=== PATIENT | female | born 1950 | race Caucasian/White ===

== ENCOUNTER 2016-08-02 09:14 | Emergency (ER) | payer MEDICAID ==
[2015-06-25 14:42] VITALS: Ht 172.7 cm; Wt 68.0 kg
[~2016-08-02] VITALS: Ht 172.7 cm; Wt 68.0 kg
[~2016-08-02 09:14] MED LIST: ACET-73 GT; BACL10TA GT; DEXL30CA3 GT; MAGN400O4 GT
[2016-08-02 09:15] VITALS: BP 162/111; PULSE 94; RESP 18; TEMP 97.1; O2SAT 96
--- NOTE | 2016-08-02 09:15 | NUR ---
Pt report received from SURESH Marshall. Pt from [facility] for G-Tube replacement. Pt with [place]. NAD noted.
--- NOTE | 2016-08-02 09:15 | NUR ---
Arrived via [facility] ambulance for GT replacement. Prior GT was 22FR. Patient to ER bed 3 to gown for evaluation. Side rails up. Report given to Maykel PRINCE.
--- NOTE | 2016-08-02 09:30 | NUR ---
Dr. Serrano at bedside to assess pt.
[2016-08-02] MEDS ORDERED: GASTROGRAFIN 120 ML ONE (09:34)
--- NOTE | 2016-08-02 12:00 | NUR ---
Dr. Serrano at bedside to place G-Tube.
--- NOTE | 2016-08-02 12:10 | NUR ---
DR. RANDLE AT BEDSIDE FOR G TUBE REPLACEMENT
--- NOTE | 2016-08-02 12:35 | NUR ---
X RAY AT BEDSIDE FOR G TUBE PLACEMENT
[2016-08-02 14:15] VITALS: BP 138/89; PULSE 82; RESP 18; TEMP 98.2; O2SAT 97
--- NOTE | 2016-08-02 14:15 | NUR ---
[facility] given written and verbal discharge instructions and verbalizes understanding. ER MD discussed with patient the results and treatment provided. Patient in stable condition. ID arm band removed. [facility] educated on pain management and for pt to follow up with PMD. Pain Scale 0/10. Opportunity for questions provided and answered.
== END 2016-08-02 14:15 ==
LOC: SED 09:14
DX: K94.23 Gastrostomy malfunction (principal); G10 Huntington's disease; Z88.5 Allergy status to narcotic agent
CPT/HCPCS: 43760; 74240; 99284; Q9963